=== PATIENT | male | born 1980 | race Caucasian/White ===

== ENCOUNTER → 2017-01-14 | Outpatient (REF) | payer OTHER | LOC: M LAB REF 09:48 | PROVIDERS: ATTEND Physician Assistant | DX: R30.0 Dysuria (principal) ==

== ENCOUNTER → 2017-10-21 | Outpatient (REF) | payer OTHER ==
[2017-10-21 20:47] LABS: APPEARANCE, URINE CLOUDY (CLEAR); BACTERIA, URINE AUTO 3+ (NEGATIVE); BILIRUBIN, URINE AUTO NEGATIVE (NEGATIVE); BLOOD, URINE BLOOD 2+ (NEGATIVE); COLOR, URINE YELLOW (YELLOW); GLUCOSE, URINE (UA) AUTO NEGATIVE (NEGATIVE); KETONE, URINE AUTO NEGATIVE (NEGATIVE); LEUKOCYTE ESTERASE, URINE AUTO 3+ (NEGATIVE); MUCUS, URINE SMALL (NEGATIVE); NITRITE, URINE AUTO NEGATIVE (NEGATIVE); PROTEIN, URINE AUTO 1+ mg/dL (NEGATIVE); RBC, URINE AUTO 125 /HPF (0-3); SPECIFIC GRAVITY URINE AUTO 1.017 (1.002-1.035); SQUAMOUS EPITHELIAL CELL UR AU 0 /HPF (0-6); WBC, URINE AUTO TNTC /HPF (0-3)
== END ==
LOC: M LAB REF 19:00
DX: N39.0 Urinary tract infection, site not specified (principal)

== ENCOUNTER 2019-09-25 23:05 | Emergency (ER) | payer OTHER, SELFPAY ==
[~2019-09-25] VITALS: Ht 154.9 cm; Wt 70.5 kg
[2019-09-25] MEDS ORDERED: ADACEL/BOOSTRIX VACCINE (DIPHTH/PERTUSS/ACELL/TETANUS)0.5ML SYR (90715) IM ONE (23:45)
[2019-09-26] MEDS ORDERED: LIDOCAINE W/EPINEPHRINE 1% 20ML VIAL SC ONE (00:30)
--- NOTE | 2019-09-26 01:11 | REPVR ---
PROCEDURE INFORMATION: Exam: CT Head Without Contrast Exam date and time: 09/26/2019 12:28 AM Age: 39 years old Clinical indication: Injury or trauma; Fall; Initial encounter; Blunt trauma (contusions or hematomas); Consciousness not specified; Additional info: Fall 9 steps, ETOH, head lac TECHNIQUE: Imaging protocol: Computed tomography of the head without contrast. Radiation optimization: All CT scans at this facility use at least one of these dose optimization techniques: automated exposure control; mA and/or kV adjustment per patient size (includes targeted exams where dose is matched to clinical indication); or iterative reconstruction. COMPARISON: CT Head without contrast 10/21/2014 5:00 PM FINDINGS: Brain: No evidence of acute intracranial hemorrhage. No acute parenchymal edema. Ventricles: No ventriculomegaly. Bones/joints: No acute fracture. Sinuses: No acute process. Mastoid air cells: Unremarkable as visualized. No mastoid effusion. Soft tissues: No acute findings. IMPRESSION: No acute intracranial process. Electronically signed by: Mason Iniguez On 09/26/2019 01:10:49 AM
--- NOTE | 2019-09-26 01:12 | REPVR ---
PROCEDURE INFORMATION: Exam: CT Cervical Spine Without Contrast Exam date and time: 09/26/2019 12:28 AM Age: 39 years old Clinical indication: Injury or trauma; Fall; Initial encounter; Blunt trauma; Additional info: Fall 9 steps, ETOH, head lac TECHNIQUE: Imaging protocol: Computed tomography images of the cervical spine without contrast. Radiation optimization: All CT scans at this facility use at least one of these dose optimization techniques: automated exposure control; mA and/or kV adjustment per patient size (includes targeted exams where dose is matched to clinical indication); or iterative reconstruction. COMPARISON: No relevant prior studies available. FINDINGS: Vertebrae: No acute fracture. Normal alignment. Discs/Spinal canal/Neural foramina: No disc herniations. No spinal canal stenosis. No neural foraminal narrowing. Soft tissues: Unremarkable. Lungs: Lung apices are normal. IMPRESSION: No acute process. No acute fracture or dislocation. Electronically signed by: Mason Iniguez On 09/26/2019 01:12:50 AM
[2019-09-26 01:34] VITALS: BP 139/79
== END 2019-09-26 01:35 | disposition home or self-care (01) ==
LOC: M ED 23:05
DX: S01.91XA Laceration without foreign body of unspecified part of head, initial encounter (principal); W10.9XXA Fall (on) (from) unspecified stairs and steps, initial encounter; Y92.099 Unspecified place in other non-institutional residence as the place of occurrence of the external cause; Y93.89 Activity, other specified; Y99.9 Unspecified external cause status; F10.10 Alcohol abuse, uncomplicated; F12.10 Cannabis abuse, uncomplicated; F17.200 Nicotine dependence, unspecified, uncomplicated

== ENCOUNTER → 2020-10-11 | Outpatient (REF) | payer OTHER ==
[2020-10-11 13:49] LABS: INR 1.02; PROTHROMBIN TIME 13.6 SECONDS (12.5-14.3)
[2020-10-11 13:50] LABS: PARTIAL THROMBOPLASTIN TIME 30.9 SECONDS (24.2-38.5)
[2020-10-11 13:51] LABS: BASO # 0.1 10^3/uL (0.0-0.2); BASO % 0.8 % (0.0-1.0); EOS # 0.2 10^3/uL (0.0-0.5); EOS % 2.5 % (0.0-3.0); HEMATOCRIT 53.3 % (42.0-52.0); HEMOGLOBIN 18.1 g/dl (13.5-17.5); LYMPH # 2.4 10^3/uL (1.5-5.0); LYMPH % 26.7 % (24.0-44.0); MEAN CORPUSCULAR HEMOGLOBIN 31.2 pg (27.0-33.0); MEAN CORPUSCULAR VOLUME 91.9 fl (80.0-96.0); MONO # 0.7 10^3/uL (0.0-0.8); MONO % 7.9 % (2.0-8.0); NEUTROPHILS # 5.5 10^3/uL (1.5-8.5); NEUTROPHILS % 61.8 % (36.0-66.0); PLATELET COUNT, AUTOMATED 236 10^3/uL (150-450); WHITE BLOOD COUNT 8.9 10^3/uL (4.0-10.0)
[2020-10-11 14:14] LABS: ALBUMIN 4.5 GM/DL (3.2-5.2); ALT/SGPT 39 U/L (12-78); BILIRUBIN,TOTAL 0.7 MG/DL (0.2-1.0); BLOOD UREA NITROGEN 13 MG/DL (7-18); CALCIUM LEVEL 9.3 MG/DL (8.5-10.1); CARBON DIOXIDE LEVEL 30 MEQ/L (21-32); CHLORIDE LEVEL 105 MEQ/L (98-107); CHOLESTEROL LEVEL 241 MG/DL (<200); CHOLESTEROL RISK RATIO 5.355 (<5); CREATININE FOR GFR 1.18 MG/DL (0.70-1.30); GLOMERULAR FILTRATION RATE > 60.0 (>60); GLUCOSE, FASTING 100 MG/DL (70-100); HDL CHOLESTEROL 45 MG/DL (>40); HEPATITIS B SURFACE ANTIBODY NEGATIVE (POSITIVE); LDL CHOLESTEROL 126 MG/DL (<100); NON-HDL-C 196 MG/DL; POTASSIUM SERUM 4.8 MEQ/L (3.5-5.1); SODIUM LEVEL 139 MEQ/L (136-145); TRIGLYCERIDES LEVEL 350 MG/DL (<150)
[2020-10-11 14:24] LABS: HEPATITIS B SURFACE ANTIGEN NEGATIVE (NEGATIVE)
[2020-10-11 15:25] LABS: HEMOGLOBIN A1c 4.7 %
[2020-10-11 20:23] LABS: HIV 1&2 SCREEN CENTAUR NEGATIVE (NEGATIVE)
[2020-10-11 20:34] LABS: HEPATITIS C VIRUS ABY INDEX > 11.0 INDEX (<0.8)
== END ==
LOC: M SFHCPLAZ 09:38
PROVIDERS: ATTEND Physician Assistant Medical
DX: Z00.00 Encounter for general adult medical examination without abnormal findings (principal); R03.0 Elevated blood-pressure reading, without diagnosis of hypertension; Z72.51 High risk heterosexual behavior; Z13.220 Encounter for screening for lipoid disorders; Z13.1 Encounter for screening for diabetes mellitus; Z12.5 Encounter for screening for malignant neoplasm of prostate; F10.10 Alcohol abuse, uncomplicated

== ENCOUNTER → 2020-10-12 | Outpatient (REF) | payer OTHER ==
[2020-10-17 02:07] LABS: HEPATITIS A IgG TOTAL Negative (Negative); HEPATITIS C QUANTITATION HCV Not Detected IU/mL (.)
== END ==
LOC: M PLALAB 14:13
PROVIDERS: ATTEND Physician Assistant Medical
DX: Z00.00 Encounter for general adult medical examination without abnormal findings (principal)

== ENCOUNTER → 2020-10-17 | Outpatient (REF) | payer OTHER | LOC: M SFHCPLAZ 13:49 | PROVIDERS: ATTEND Physician Assistant Medical | DX: Z72.51 High risk heterosexual behavior (principal) ==

== ENCOUNTER → 2023-02-25 | Outpatient (CLI) | payer OTHER ==
[2023-02-25 11:33] LABS: BASO # 0.1 10^3/uL (0.0-0.2); BASO % 0.8 % (0.0-1.0); EOS # 0.3 10^3/uL (0.0-0.5); HEMATOCRIT 49.1 % (42.0-52.0); LYMPH # 3.1 10^3/uL (1.5-5.0); MEAN CORPUSCULAR HEMOGLOBIN 30.6 pg (27.0-33.0); MEAN CORPUSCULAR VOLUME 89.9 fl (80.0-96.0); MONO # 0.6 10^3/uL (0.0-0.8); MONO % 6.6 % (2.0-8.0); NEUTROPHILS # 4.6 10^3/uL (1.5-8.5); NEUTROPHILS % 53.4 % (36.0-66.0); PLATELET COUNT, AUTOMATED 287 10^3/uL (150-450); RED BLOOD COUNT 5.46 10^6/uL (4.30-6.10); WHITE BLOOD COUNT 8.7 10^3/uL (4.0-10.0)
[2023-02-25 11:37] LABS: HEMOGLOBIN 16.7 g/dl (13.5-17.5)
[2023-02-25 11:43] LABS: ALBUMIN 3.9 G/DL (3.2-5.2); ALKALINE PHOSPHATASE 75 U/L (46-116); ALT/SGPT 19 U/L (7.0-40); AST/SGOT 9 U/L (<34); BILIRUBIN,TOTAL 0.6 MG/DL (0.3-1.2); BLOOD UREA NITROGEN 12 MG/DL (9-23); CALCIUM LEVEL 9.3 MG/DL (8.5-10.1); CARBON DIOXIDE LEVEL 28 MMOL/L (20-31); CHLORIDE LEVEL 105 MMOL/L (98-107); CREATININE FOR GFR 0.97 MG/DL (0.70-1.30); GLOMERULAR FILTRATION RATE > 60.0 (>60); GLUCOSE, FASTING 98 MG/DL (60-100); POTASSIUM SERUM 3.6 MMOL/L (3.5-5.1); SODIUM LEVEL 140 MMOL/L (136-145); TOTAL PROTEIN 6.9 G/DL (5.7-8.2)
[2023-02-25 11:49] LABS: HEPATITIS B SURFACE ANTIBODY NEGATIVE (POSITIVE)
[2023-02-25 12:01] LABS: HEPATITIS B SURFACE ANTIGEN NEGATIVE (NEGATIVE)
[2023-02-26 18:09] LABS: HEPATITIS B CORE ANTIBODY IGG Negative (Negative); HEPATITIS C QUANTITATION HCV Not Detected IU/mL (.)
== END ==
LOC: M PLALAB 07:05
PROVIDERS: ATTEND Internal Medicine Infectious Disease
DX: Z86.19 Personal history of other infectious and parasitic diseases (principal)

== ENCOUNTER 2025-04-12 11:01 | Emergency (ER) | payer OTHER ==
[~2025-04-12] VITALS: Ht 154.9 cm; Wt 65.8 kg
[2025-04-12 11:02] VITALS: BP 129/87; TEMP 98.3; O2SAT 97
== END 2025-04-12 11:25 | disposition left against medical advice (07) ==
LOC: M ED 11:01
DX: Z53.21 Procedure and treatment not carried out due to patient leaving prior to being seen by health care provider (principal)

== ENCOUNTER 2025-08-09 11:54 | Observation (INO) | payer OTHER ==
[~2025-08-09] VITALS: Ht 154.9 cm; Wt 71.9 kg
[~2025-08-09 11:54] MED LIST: ASPIRIN 81 MG CHEWABLE TABLET PO SCH; ATORVASTATIN 20 MG TAB PO SCH
[2025-08-09] MEDS ORDERED: ISOVUE-370 76% 100 ML VIAL As Ordered ONE (12:46)
[2025-08-09 13:06] LABS: BASO # 0.1 10^3/uL (0.0-0.2); BASO % 0.8 % (0.0-1.0); EOS # 0.2 10^3/uL (0.0-0.5); EOS % 3.0 % (0.0-3.0); LYMPH # 2.5 10^3/uL (1.5-5.0); LYMPH % 33.8 % (24.0-44.0); MONO # 0.6 10^3/uL (0.0-0.8); MONO % 7.6 % (2.0-8.0); NEUTROPHILS # 4.0 10^3/uL (1.5-8.5); NEUTROPHILS % 54.7 % (36.0-66.0); PLATELET COUNT, AUTOMATED 253 10^3/uL (150-450)
[2025-08-09 13:18] LABS: ALT/SGPT 42 U/L (7.0-40); AST/SGOT 30 U/L (<34); CALCIUM LEVEL 9.5 MG/DL (8.5-10.1); CARBON DIOXIDE LEVEL 28 MMOL/L (20-31); CHLORIDE LEVEL 105 MMOL/L (98-107); CK-MB VALUE MASS 4.8 NG/ML (<3.6); CREATININE FOR GFR 1.02 MG/DL (0.70-1.30); GLOMERULAR FILTRATION RATE > 90.0 (>60); POTASSIUM SERUM 3.9 MMOL/L (3.5-5.1); SODIUM LEVEL 141 MMOL/L (136-145)
[2025-08-09 13:21] LABS: CPK CREATINE PHOSPHOKINASE 175 U/L (46-171); MB/CK RELATIVE INDEX 2.74 (< OR =4)
[2025-08-09 13:37] LABS: INR 1.02
[2025-08-09 14:39] LABS: CK-MB VALUE MASS 4.1 NG/ML (<3.6)
[2025-08-09 14:47] LABS: CPK CREATINE PHOSPHOKINASE 138.0 U/L (46-171); MB/CK RELATIVE INDEX 2.97 (< OR =4)
[2025-08-09 15:15] VITALS: BP 127/81; O2SAT 97
[2025-08-09] MEDS: ATORVASTATIN 20 MG TAB PO ONE (15:42)
[2025-08-09] MEDS: ASPIRIN 81 MG CHEWABLE TABLET PO ONE (15:43)
[2025-08-09 15:51] LABS: C REACTIVE PROTEIN QUANTITATIV < 0.50 MG/DL (<1.0); RHEUMATOID FACTOR QUANT 4.1 IU/ML (<14)
[2025-08-09] MEDS ORDERED: HOME MED LIST COMPLETE! XX SCH (17:35)
[2025-08-10] MEDS ORDERED: ENOXAPARIN 40 MG/0.4 ML SYRINGE (J1650 PER 10MG) SC SCH (09:00)
[2025-08-10] MEDS ORDERED: ATORVASTATIN 20 MG TAB PO SCH (09:00)
[2025-08-10] MEDS ORDERED: ASPIRIN 81 MG CHEWABLE TABLET PO SCH (09:00)
[2025-08-10 09:54] LABS: DRVV SCREEN 33.9 SECONDS; PTT LUPUS TYPE ANTICOAG SCREEN 0.84 (0-1.20)
[2025-08-12 14:38] LABS: SSA SJOGRENS A <1.0 NEG AI (<1.0 NEG); SSB SJOGRENS B <1.0 NEG AI (<1.0 NEG)
[2025-08-12 15:41] LABS: CARDIOLIPIN IGA ANTIBODY 21.0 APL-U/mL (<20.0); CARDIOLIPIN IGG ANTIBODY < 2.0 GPL-U/mL (<20.0); CARDIOLIPIN IGM ANTIBODY < 2.0 MPL-U/mL (<20.0)
[2025-08-14 02:07] LABS: ANTI THROMBIN 3 ANTIGEN IMMUNO 85 % normal (80-120); ANTI THROMBIN 3 FUNCT ACTIVITY 95 % normal (80-135)
[2025-08-14 15:02] LABS: PROTEIN S ANTIGEN FREE 105 % normal (57-171); PROTEIN S ANTIGEN TOTAL 116 % normal (70-140)
[2025-08-15 18:57] LABS: FACTOR V111 ACTIVITY, CLOTTING 100 % normal (50-180); FACTOR VIII APTT 28 sec (23-32); RISTOCETIN COFACTOR 88 % normal (42-200); VW FACTOR ANTIGEN 117 % (50-217)
[2025-08-16 13:46] LABS: FACTOR II PROTHROMBIN GENE AN NEGATIVE
[2025-08-16 14:26] LABS: FACTOR V LEIDEN FOR MEDINET NEGATIVE
[2025-08-16 18:27] LABS: PROTEIN C ANTIGEN 92 % normal (70-140)
== END 2025-08-09 21:41 | disposition left against medical advice (07) ==
LOC: M ED 11:54 → M ED INP 15:21
PROVIDERS: ADMIT Internal Medicine; ATTEND Internal Medicine
DX: R20.0 Anesthesia of skin (principal)
CPT/HCPCS: 70450; 70496; 70498; 70551; 71045; 80047; 80048; 80076; 81240; 82550; 82553; 84484; 85025; 85240; 85245; 85246; 85300; 85301; 85302; 85305; 85306; 85610; 85652; 85730; 86140; 86147; 86235; 86431; 86850; 86870; 86900; 86901; 93005; 93041; 94760; 99284; Q9967